=== PATIENT | male | born 1995 | race Caucasian/White ===

== ENCOUNTER 2017-09-20 07:06 | Emergency (ER) | payer OTHER ==
[~2017-09-20] VITALS: Ht 170.2 cm; Wt 90.7 kg
[~2017-09-20 07:06] MED LIST: ACETAMINOPHEN-1 EAC1 PO; AMOXICILLIN875 MG PO; BACTROBAN22 GM TP; IBUPROFEN 600600 M1 PO; LIDOCAINE VISC100 M1 SWISH&SPIT; NOHOMEMEDICATIONS; PENICILLIN V P500 MG PO; PEPTO-BISMOL1 TAB PO; PHENERGAN 25 MG25 M1 PO; PREDNISONE50 MG PO; TRIAMCINOLONE A80 G2 TOP; ULTRAM 50MG TAB50 MG PO
[2017-09-20 07:15] VITALS: BP 152/102
[2017-09-20] MEDS ORDERED: PENICILLIN V P500 MG PO (07:27)
[2017-09-20] MEDS ORDERED: NORCO 5-325 TA1 EACH PO (07:27)
== END 2017-09-20 07:35 | disposition home or self-care (01) ==
LOC: M.ERS 07:06
DX: S02.5XXA Fracture of tooth (traumatic), initial encounter for closed fracture (principal); F17.210 Nicotine dependence, cigarettes, uncomplicated; Z88.6 Allergy status to analgesic agent; X58.XXXA Exposure to other specified factors, initial encounter; Y93.89 Activity, other specified; Y92.89 Other specified places as the place of occurrence of the external cause; Y99.8 Other external cause status